=== PATIENT | male | born 1935 ===

== ENCOUNTER 2018-01-22 09:08 | Outpatient (CLI) | payer OTHER ==
[~2018-01-22 09:08] MED LIST: HYZAAR 100-121 UDTAB
== END 2018-01-22 09:14 | disposition home or self-care (01) ==
LOC: SONOGRAMA 09:08
DX: R59.0 Localized enlarged lymph nodes (principal)

== ENCOUNTER 2018-03-09 07:40 | Outpatient (CLI) | payer OTHER | END 2018-03-09 10:30 | disposition home or self-care (01) | LOC: MRI 07:40 | DX: R22.9 Localized swelling, mass and lump, unspecified (principal) | CPT/HCPCS: 72196 ==

== ENCOUNTER 2018-03-12 08:26 | Outpatient (CLI) | payer OTHER | END 2018-03-12 08:28 | disposition home or self-care (01) | LOC: TOM 08:26 | DX: C21.1 Malignant neoplasm of anal canal (principal); Z12.11 Encounter for screening for malignant neoplasm of colon ==

== ENCOUNTER 2018-04-05 09:37 | Day surgery (SDC) | payer OTHER ==
[2018-04-05] MEDS ORDERED: ULTRACET PO (12:59)
== END 2018-04-05 16:42 | disposition home or self-care (01) ==
LOC: CIR.AMB 09:37
DX: D04.5 Carcinoma in situ of skin of trunk (principal)

== ENCOUNTER 2018-12-28 10:49 | Emergency (ER) | payer OTHER ==
[~2018-12-28] VITALS: Ht 160 cm; Wt 61.2 kg
[~2018-12-28 10:49] MED LIST changes: +ULTRACET PO
== END 2018-12-28 15:35 | disposition home or self-care (01) ==
LOC: ER 10:49
DX: K29.70 Gastritis, unspecified, without bleeding (principal); K57.92 Diverticulitis of intestine, part unspecified, without perforation or abscess without bleeding

== ENCOUNTER 2019-01-01 07:43 | Inpatient (IN) | payer OTHER ==
[~2019-01-01] VITALS: Ht 160 cm; Wt 61.2 kg
== END 2019-01-10 06:45 | disposition home or self-care (01) | DRG 444 ==
LOC: ER 07:43 → MEDI 16:19 → SURH 16:19 → MEDJ 17:16 → SURH 17:52
PROVIDERS: ADMIT Internal Medicine Cardiovascular Disease
PROC: BW40ZZZ Ultrasonography of Abdomen (ICD-10-PCS; 2019-01-01)
PROC: BF37ZZZ Magnetic Resonance Imaging (MRI) of Pancreas (ICD-10-PCS; 2019-01-01)
PROC: BW4GZZZ Ultrasonography of Pelvic Region (ICD-10-PCS; 2019-01-04)
PROC: 0F798ZZ Dilation of Common Bile Duct, Via Natural or Artificial Opening Endoscopic (ICD-10-PCS; principal; 2019-01-08)
DX: K80.01 Calculus of gallbladder with acute cholecystitis with obstruction (principal); K85.10 Biliary acute pancreatitis without necrosis or infection; R78.81 Bacteremia; K29.00 Acute gastritis without bleeding; K76.89 Other specified diseases of liver; B96.29 Other Escherichia coli [E. coli] as the cause of diseases classified elsewhere; B96.1 Klebsiella pneumoniae [K. pneumoniae] as the cause of diseases classified elsewhere; K62.89 Other specified diseases of anus and rectum; R15.9 Full incontinence of feces; I12.9 Hypertensive chronic kidney disease with stage 1 through stage 4 chronic kidney disease, or unspecified chronic kidney disease; N18.2 Chronic kidney disease, stage 2 (mild); N40.0 Benign prostatic hyperplasia without lower urinary tract symptoms; N28.9 Disorder of kidney and ureter, unspecified; K57.10 Diverticulosis of small intestine without perforation or abscess without bleeding; Z88.1 Allergy status to other antibiotic agents

== ENCOUNTER 2019-06-25 15:01 | Emergency (ER) | payer OTHER ==
[~2019-06-25] VITALS: Ht 160 cm; Wt 61.2 kg
== END 2019-06-25 19:09 | disposition home or self-care (01) ==
LOC: ER 15:01
DX: T46.5X4A Poisoning by other antihypertensive drugs, undetermined, initial encounter (principal); H53.8 Other visual disturbances; R55 Syncope and collapse; R51 Headache; Y92.89 Other specified places as the place of occurrence of the external cause

== ENCOUNTER 2019-09-30 12:25 | Emergency (ER) | payer OTHER ==
[~2019-09-30] VITALS: Ht 160 cm; Wt 63.5 kg
== END 2019-09-30 19:40 | disposition home or self-care (01) ==
LOC: ER 12:25 → CPU-OBS 13:28 → ER 19:40
DX: R07.89 Other chest pain (principal)

== ENCOUNTER 2020-04-24 09:44 | Outpatient (CLI) | payer OTHER | END 2020-04-24 09:48 | disposition home or self-care (01) | LOC: RAD 09:44 | PROVIDERS: ATTEND Internal Medicine Cardiovascular Disease | DX: M12.88 Other specific arthropathies, not elsewhere classified, other specified site (principal) ==

== ENCOUNTER 2020-04-29 10:38 | Outpatient (CLI) | payer OTHER | END 2020-04-29 10:48 | disposition home or self-care (01) | LOC: NUCLEAR 10:38 | PROVIDERS: ATTEND Internal Medicine Cardiovascular Disease | DX: I73.9 Peripheral vascular disease, unspecified (principal) ==

== ENCOUNTER 2020-10-05 20:05 | Emergency (ER) | payer OTHER ==
[~2020-10-05] VITALS: Ht 157.5 cm; Wt 65.8 kg
[2020-10-05] MEDS ORDERED: MEDROLPACK PO (23:52)
[2020-10-05] MEDS ORDERED: AZITHROMYCIN250 MG PO (23:52)
[2020-10-05] MEDS ORDERED: VITAMIN C WIT1000 MG PO (23:52)
== END 2020-10-05 23:43 | disposition home or self-care (01) ==
LOC: ER 20:05
DX: B34.9 Viral infection, unspecified (principal); Z20.822 Contact with and (suspected) exposure to COVID-19

== ENCOUNTER 2021-04-20 13:03 | Outpatient (CLI) | payer OTHER ==
[~2021-04-20 13:03] MED LIST changes: +AZITHROMYCIN250 MG PO; +MEDROLPACK PO; +VITAMIN C WIT1000 MG PO
== END 2021-04-20 13:11 | disposition home or self-care (01) ==
LOC: TOM 13:03
PROVIDERS: ATTEND Internal Medicine Cardiovascular Disease
DX: R10.84 Generalized abdominal pain (principal)

== ENCOUNTER 2022-07-13 10:01 | Outpatient (CLI) | payer OTHER | END 2022-07-13 10:08 | disposition home or self-care (01) | LOC: RAD 10:01 | PROVIDERS: ATTEND Internal Medicine Cardiovascular Disease | DX: M12.9 Arthropathy, unspecified (principal) ==

== ENCOUNTER 2025-06-19 09:13 | Outpatient (CLI) | payer OTHER | END 2025-06-19 09:18 | disposition home or self-care (01) | LOC: RAD 09:13 | PROVIDERS: ATTEND Internal Medicine Cardiovascular Disease | DX: M46.47 Discitis, unspecified, lumbosacral region (principal); M12.9 Arthropathy, unspecified ==